=== PATIENT | female | born 1990 | race Caucasian/White ===

== ENCOUNTER 2017-12-14 09:01 | Emergency (ER) | payer MEDICAID ==
[~2017-12-14] VITALS: Ht 165.1 cm; Wt 63.0 kg
[~2017-12-14 09:01] MED LIST: IBUP-1986 PO; NO HOME MEDS; VAL5T PO
[2017-12-14 09:44] VITALS: BP 130/84
[2017-12-14] MEDS ORDERED: PENI500T2 PO (10:50)
[2017-12-14] MEDS ORDERED: bupivacaine 0.25%/epinephrine 1:200,000 inj (contains preserv. MDV) IJ ONE (11:15)
[2017-12-14] MEDS ORDERED: IBUP-1985 PO (11:25)
[2017-12-14] MEDS ORDERED: CLIN300C85 PO (11:35)
== END 2017-12-14 11:54 | disposition home or self-care (01) ==
LOC: ER 09:01
DX: K08.89 Other specified disorders of teeth and supporting structures (principal); G89.29 Other chronic pain; F12.90 Cannabis use, unspecified, uncomplicated; F15.90 Other stimulant use, unspecified, uncomplicated; Z60.2 Problems related to living alone; Z88.0 Allergy status to penicillin; Z79.899 Other long term (current) drug therapy
CPT/HCPCS: 64400; 99284

== ENCOUNTER 2018-05-19 13:29 | Emergency (ER) | payer MEDICAID ==
[~2018-05-19] VITALS: Ht 165.1 cm; Wt 53.0 kg
[~2018-05-19 13:29] MED LIST changes: +CLIN300C85 PO; +IBUP-1985 PO; +NITR100C6 PO
[2018-05-19 13:41] VITALS: BP 109/72
[2018-05-19] MEDS ORDERED: TRAM50TA2 PO (14:19)
== END 2018-05-19 14:49 | disposition home or self-care (01) ==
LOC: ER 13:29
DX: S60.221A Contusion of right hand, initial encounter (principal); G89.29 Other chronic pain; F12.90 Cannabis use, unspecified, uncomplicated; F15.90 Other stimulant use, unspecified, uncomplicated; Z60.2 Problems related to living alone; Z88.0 Allergy status to penicillin; W22.03XA Walked into furniture, initial encounter; Y93.89 Activity, other specified; Y92.89 Other specified places as the place of occurrence of the external cause; Y99.8 Other external cause status
CPT/HCPCS: 73130; 99283

== ENCOUNTER 2019-04-18 23:53 | Emergency (ER) | payer MEDICAID ==
[~2019-04-18] VITALS: Ht 165.1 cm; Wt 56.2 kg
[~2019-04-18 23:53] MED LIST changes: +CLIN-90 PO; -CLIN300C85 PO
[2019-04-18 23:58] VITALS: BP 137/89
[2019-04-19] MEDS ORDERED: MUPI22OI30 TOP (00:33)
[2019-04-19] MEDS ORDERED: BACDS PO (00:33)
== END 2019-04-19 00:49 | disposition home or self-care (01) ==
LOC: ER 23:54
DX: L08.9 Local infection of the skin and subcutaneous tissue, unspecified (principal); G89.29 Other chronic pain; F12.20 Cannabis dependence, uncomplicated; F32.9 Major depressive disorder, single episode, unspecified; F15.90 Other stimulant use, unspecified, uncomplicated; Z88.0 Allergy status to penicillin
CPT/HCPCS: 99283

== ENCOUNTER 2019-10-30 14:05 | Emergency (ER) | payer MEDICAID ==
[~2019-10-30] VITALS: Ht 165.1 cm; Wt 59.0 kg
[~2019-10-30 14:05] MED LIST changes: -CLIN-90 PO; +CLIN-97 PO
[2019-10-30 14:19] VITALS: BP 114/71
[2019-10-30] MEDS ORDERED: TETanus/Pertussis (Acell)/Diphther VAC/PF (Tdap-Adult) 0.5ml syringe IMVAC ONE (14:45)
== END 2019-10-30 17:11 | disposition left against medical advice (07) ==
LOC: ER 14:05
DX: S00.81XA Abrasion of other part of head, initial encounter (principal); S60.512A Abrasion of left hand, initial encounter; S60.511A Abrasion of right hand, initial encounter; K08.89 Other specified disorders of teeth and supporting structures; Z53.21 Procedure and treatment not carried out due to patient leaving prior to being seen by health care provider; W55.01XA Bitten by cat, initial encounter; Y93.89 Activity, other specified; Y92.89 Other specified places as the place of occurrence of the external cause; Y99.8 Other external cause status

== ENCOUNTER 2020-04-20 17:44 | Emergency (ER) | payer MEDICAID | END 2020-04-20 17:58 | disposition left against medical advice (07) | LOC: ER 17:44 | DX: Z00.8 Encounter for other general examination (principal); Z53.21 Procedure and treatment not carried out due to patient leaving prior to being seen by health care provider ==

== ENCOUNTER 2020-04-23 16:07 | Emergency (ER) | payer MEDICAID | END 2020-04-23 19:28 | disposition left against medical advice (07) | LOC: ER 16:08 → EEVIPCON 16:08 → ER 19:28 | DX: Z00.8 Encounter for other general examination (principal); Z53.21 Procedure and treatment not carried out due to patient leaving prior to being seen by health care provider ==

== ENCOUNTER 2020-11-22 23:31 | Emergency (ER) | payer MEDICAID ==
[~2020-11-22] VITALS: Ht 165.1 cm; Wt 63.2 kg
[~2020-11-22 23:31] MED LIST changes: +DIAZ5TAB22 PO; -VAL5T PO
[2020-11-22 23:57] VITALS: BP 126/95
== END 2020-11-23 03:10 | disposition left against medical advice (07) ==
LOC: ER 23:31
DX: R51.9 Headache, unspecified (principal); Z53.21 Procedure and treatment not carried out due to patient leaving prior to being seen by health care provider

== ENCOUNTER 2020-11-25 00:30 | Emergency (ER) | payer MEDICAID ==
[~2020-11-25] VITALS: Ht 165.1 cm; Wt 60.0 kg
[2020-11-25 00:36] VITALS: BP 122/93
[2020-11-25] MEDS ORDERED: ONDA4TAB6 PO (01:19)
== END 2020-11-25 01:35 | disposition home or self-care (01) ==
LOC: ER 00:31
DX: K29.00 Acute gastritis without bleeding (principal); R11.2 Nausea with vomiting, unspecified; R42 Dizziness and giddiness; R53.83 Other fatigue; G89.29 Other chronic pain; F32.9 Major depressive disorder, single episode, unspecified; F12.90 Cannabis use, unspecified, uncomplicated; F15.90 Other stimulant use, unspecified, uncomplicated; F11.90 Opioid use, unspecified, uncomplicated; F19.90 Other psychoactive substance use, unspecified, uncomplicated; Z60.2 Problems related to living alone; Z88.0 Allergy status to penicillin; Z79.2 Long term (current) use of antibiotics; Z79.899 Other long term (current) drug therapy
CPT/HCPCS: 99283

== ENCOUNTER → 2022-08-18 | Emergency (ER) | payer MEDICAID ==
[~2022-08-18] VITALS: Ht 165.1 cm; Wt 68.2 kg
[~2022-08-18] MED LIST changes: +ONDA4TAB6 PO
[2022-08-18 12:43] LABS: BASOPHILS # (AUTO) 0.1 X10'3 (0-0.2); BASOPHILS % (AUTO) 0.9 % (0-1); EOSINOPHILS # (AUTO) 0.4 X10'3 (0-0.9); EOSINOPHILS % (AUTO) 7.7 % (0-6); HEMATOCRIT 40.6 % (35.0-45.0); HEMOGLOBIN 13.5 g/dl (12.0-16.0); LYMPHOCYTES # (AUTO) 2.1 X10'3 (1.1-4.8); LYMPHOCYTES % (AUTO) 35.5 % (21-51); MEAN CORPUSCULAR HGB CONC 33.2 g/dL (33.0-36.5); MEAN CORPUSCULAR VOLUME 90.3 FL (78-98); MEAN PLATELET VOLUME 7.1 FL (7.4-10.4); MONOCYTES # (AUTO) 0.5 X10'3 (0-0.9); NEUTROPHILS # (AUTO) 2.8 X10'3 (1.8-7.7); NEUTROPHILS % (AUTO) 47.9 % (42-75); PLATELET COUNT 377 X10'3 (140-440); RED BLOOD COUNT 4.49 X10'6 (4.20-5.60); RED CELL DISTRIBUTION WIDTH 13.8 % (11.5-14.5); WHITE BLOOD COUNT 5.8 X10'3 (4.5-11.0)
[2022-08-18 13:05] LABS: ALANINE AMINOTRANSFERASE 17 U/L (12-78); ALBUMIN 3.8 G/DL (3.4-5.0); ALBUMIN/GLOBULIN RATIO 1.1 (1.1-1.5); ALKALINE PHOSPHATASE 83 IU/L (46-116); ANION GAP 11 (8-16); BILIRUBIN,TOTAL 0.8 MG/DL (0.1-1.0); BLOOD UREA NITROGEN 23 MG/DL (7-18); BUN/CREATININE RATIO 32.9 (6.6-38.0); CALCIUM 8.7 MG/DL (8.5-10.1); CHLORIDE 106 MMOL/L (99-107); GLUCOSE 117 MG/DL (70-104); MAGNESIUM 2.1 MG/DL (1.5-2.4); SODIUM 141 MMOL/L (135-145); TOTAL CARBON DIOXIDE 23.9 MMOL/L (24-32); TOTAL PROTEIN 7.3 G/DL (6.4-8.2); eGFR > 90 ML/MIN
[2022-08-18 13:06] LABS: ASPARTATE AMINO TRANSFERASE 23 U/L (10-37); POTASSIUM 4.7 MMOL/L (3.5-5.1)
[2022-08-18 18:39] VITALS: BP 147/93
== END | disposition home or self-care (01) ==
LOC: ER 12:13
DX: R07.9 Chest pain, unspecified (principal); G89.29 Other chronic pain; M54.9 Dorsalgia, unspecified; F32.A Depression, unspecified; F20.9 Schizophrenia, unspecified; Z88.0 Allergy status to penicillin; Z79.899 Other long term (current) drug therapy
CPT/HCPCS: 36415; 71046; 80053; 83735; 83880; 84484; 85025; 93005; 99285

== ENCOUNTER 2024-03-17 10:27 | Emergency (ER) | payer MEDICAID ==
[~2024-03-17] VITALS: Ht 172.7 cm; Wt 61.5 kg
[2024-03-17 10:37] VITALS: BP 119/81; PULSE 103; RESP 18; TEMP 97.8; O2SAT 98
== END 2024-03-17 14:31 | disposition left against medical advice (07) ==
LOC: ER 10:28
DX: K08.89 Other specified disorders of teeth and supporting structures (principal); Z53.21 Procedure and treatment not carried out due to patient leaving prior to being seen by health care provider

== ENCOUNTER 2024-03-17 14:52 | Emergency (ER) | payer MEDICAID | END 2024-03-17 17:50 | disposition left against medical advice (07) | LOC: ER 14:53 | DX: R07.0 Pain in throat (principal); Z53.21 Procedure and treatment not carried out due to patient leaving prior to being seen by health care provider ==

== ENCOUNTER 2024-03-19 17:21 | Emergency (ER) | payer MEDICAID ==
[~2024-03-19] VITALS: Ht 165.1 cm; Wt 59.1 kg
[2024-03-19 17:31] VITALS: BP 116/75; PULSE 105; RESP 14; O2SAT 97
[2024-03-19] MEDS ORDERED: CLIN-97 PO (17:43)
[2024-03-19 17:49] VITALS: TEMP 98.8
== END 2024-03-19 17:53 | disposition home or self-care (01) ==
LOC: ER 17:22
DX: K04.7 Periapical abscess without sinus (principal); G89.29 Other chronic pain; F32.A Depression, unspecified; F20.9 Schizophrenia, unspecified; F12.90 Cannabis use, unspecified, uncomplicated; F15.90 Other stimulant use, unspecified, uncomplicated; Z88.0 Allergy status to penicillin; Z79.2 Long term (current) use of antibiotics; Z79.899 Other long term (current) drug therapy; Z79.1 Long term (current) use of non-steroidal anti-inflammatories (NSAID)
CPT/HCPCS: 99283

== ENCOUNTER 2024-06-04 19:02 | Emergency (ER) | payer MEDICAID ==
[~2024-06-04] VITALS: Ht 165.1 cm; Wt 70.2 kg
[2024-06-04] MEDS ORDERED: CEPH-585 PO (20:44)
[2024-06-04 20:47] VITALS: BP 110/74; PULSE 70; RESP 16; TEMP 98.1; O2SAT 99
== END 2024-06-04 20:49 | disposition home or self-care (01) ==
LOC: ER 19:02
DX: L97.819 Non-pressure chronic ulcer of other part of right lower leg with unspecified severity (principal); F20.9 Schizophrenia, unspecified; F32.A Depression, unspecified; F15.90 Other stimulant use, unspecified, uncomplicated; F12.90 Cannabis use, unspecified, uncomplicated; F11.90 Opioid use, unspecified, uncomplicated; Z88.0 Allergy status to penicillin
CPT/HCPCS: 73610; 73630; 99284; A6258; A6449